=== PATIENT | male | born 1995 | race Two or more races ===

== ENCOUNTER 2022-05-12 20:48 | Emergency (ER) | payer MEDICAID ==
[~2022-05-12] VITALS: Ht 167.6 cm; Wt 83.9 kg
[2022-05-12 20:55] VITALS: BP 130/83
--- NOTE | 2022-05-12 21:17 | NUR ---
Called [phone] - Recommendation- EKG, CBC, CMP, Tylenol, Alcohol, Aspirin, and observation 6 hours and repeat EKG, If patient drawsiness, give Activate Charcoal. Placed patient on microphone operator.
[2022-05-12 21:39] LABS: BASOPHILS % (AUTO) 0.7 % (0.0-2.0); EOSINOPHILS # (AUTO) 0.2 K/uL (0-0.4); EOSINOPHILS % (AUTO) 3.1 % (0.0-4.0); HEMATOCRIT 47.8 % (36-52); LYMPHOCYTES # (AUTO) 1.6 K/uL (2.0-11.5); LYMPHOCYTES % (AUTO) 23.2 % (20.5-51.1); MEAN CORPUSCULAR HEMOGLOBIN 30 pg (27-31); MEAN CORPUSCULAR HGB CONC 34 g/dL (33-37); MEAN CORPUSCULAR VOLUME 88.1 fL (80-94); MONOCYTES # (AUTO) 0.7 K/uL (0.8-1.0); MONOCYTES % (AUTO) 9.8 % (1.7-9.3); NEUTROPHILS # (AUTO) 4.4 K/uL (1.8-7.7); NEUTROPHILS % (AUTO) 63.2 % (42.2-75.2); PLATELET COUNT (AUTO) 312 K/uL (140-450); RED BLOOD CELL COUNT(AUTO) 5.43 MIL/uL (4.20-6.10); RED CELL DISTRIBUTION WIDTH 13.7 % (11.6-13.7); WHITE BLOOD COUNT (AUTO) 6.9 K/uL (4.8-10.8)
[2022-05-12 22:00] LABS: ALBUMIN 4.6 g/dL (3.4-5.0); ANION GAP 13.5 (8-16); ASPARTATE AMINOTRANSFERASE 16 U/L (15-37); CARBON DIOXIDE 25.6 mmol/L (21-32); CHLORIDE 102 mmol/L (98-107); CREATININE 0.9 mg/dL (0.6-1.3); GFR ARICAN-AMERICAN 131 mL/min (>90); GLUCOSE 91 mg/dL (74-106); POTASSIUM 4.1 mmol/L (3.5-5.1); SODIUM SERUM 137 mmol/L (136-145); TOTAL BILIRUBIN 0.5 mg/dL (0.0-1.0); UREA NITROGEN, BLOOD 10 mg/dL (7-18)
--- NOTE | 2022-05-12 22:00 | NUR ---
pt taken to bed 06
[2022-05-12 22:02] LABS: SALICYLATE < 2.8 mg/dL (2.8-20.0)
[2022-05-12 22:03] LABS: ACETAMINOPHEN < 0.5 ug/ml (10-30)
[2022-05-12 22:13] LABS: BARBITURATE, URINE NEGATIVE ng/ml (NEG <=200); BENZODIAZEPINE, URINE NEGATIVE ng/mL (NEG <=200); CANNABINOID, URINE NEGATIVE ng/mL (NEG <=50); COCAINE, URINE NEGATIVE ng/mL (NEG <=300); OPIATE, URINE NEGATIVE ng/mL (NEG <=2000); PHENCYCLIDINE SCREEN,URINE NEGATIVE ng/mL (NEG <=25)
--- NOTE | 2022-05-12 22:28 | NUR ---
called pt friend to notify he was here
--- NOTE | 2022-05-13 01:00 | NUR ---
27 Y/O M BIBA FOR SI. PT WAS AT HOME DEPRESSED AND OVERSDOSED: TOOK 4 ZOLOFTS, 4 ALPRALOZAM, 4 LORAZAPRAM, 4 LAMATOGRINE . PT CALLED 911 STATED HE HAD SI. PT HAS A HX OF DEPRESSSION AND TAKES ABOVE MEDS. PT STATES HE WANTS TO END HIS LIFE. PT STATES HES DEPRESSED , HAS NO JOB AND WANTS TO END LIFE. AT THIS TIME PT STATES HE IS DEPRESSED AND HAS THOUGHTS BUT NO PLAN. PT HAS NO PREVIOUS MEDICAL HISTORY OTHER THAN DEPRESSION, 5150 WROTE FOR DANGER TO SELF ON 05/12/22 AT 2026
--- NOTE | 2022-05-13 02:15 | NUR ---
PT ASKED FOR RAJWINDER. GIVEN MEAL AND DRINK
--- NOTE | 2022-05-13 02:20 | NUR ---
Karol koch in EDM - 05/13/22 at 0230 by [email or web address] 27 Y/O Marquez PACHECO FOR SI. PT WAS AT HOME DEPRESSED AND TOOK 4 ZOLOFTS, 4 ALPRALOZAM, 4 LORAZAPRAM, 4 LAMATOGRINE
--- NOTE | 2022-05-13 03:51 | NUR ---
PT UP WAITING FOR TELEPYSCH
--- NOTE | 2022-05-13 05:20 | NUR ---
PT PACKAGING SPECIALIST WITH [facility]
--- NOTE | 2022-05-13 05:45 | NUR ---
[facility] SUGGESTED TO END 5150 HOLD. TO WRITE DOWN RESOURCES FOR PT TO GET A THERAPIST. TO WRITE NEW RX FOR PT. STATES THAT PT IS NO LONGER HARM TO SELF AND WANT TO RECIEVE HELP.
--- NOTE | 2022-05-13 05:55 | NUR ---
LEFT AT [facility] FOR DR TO CALL BACK
[2022-05-13 06:40] VITALS: BP 121/70
--- NOTE | 2022-05-13 06:40 | NUR ---
Patient discharged with v/s stable. Written and verbal after care instructions given and explained. Patient verbalized understanding. Ambulatory with steady gait. All questions addressed prior to discharge. Advised to follow up with [facility] DR WROTE AND SENT RX TO PHARMACY
--- NOTE | 2022-05-13 08:34 | NUR ---
RECEIVED CALL FROM RAJEEV FROM [facility]. REPORTED LAB VALUES AND INFORMED HER THAT PT WAS DISCHARGED. CASE CLOSED ON THEIR END.
== END 2022-05-13 06:40 | disposition home or self-care (01) ==
LOC: MED 20:48
DX: T43.222A Poisoning by selective serotonin reuptake inhibitors, intentional self-harm, initial encounter (principal); Z20.822 Contact with and (suspected) exposure to COVID-19; T42.4X2A Poisoning by benzodiazepines, intentional self-harm, initial encounter; T42.6X2A Poisoning by other antiepileptic and sedative-hypnotic drugs, intentional self-harm, initial encounter; Y92.89 Other specified places as the place of occurrence of the external cause
CPT/HCPCS: 36415; 80053; 80299; 80305; 85025; 87426; 87635; 93005; 99285; C9803; G0480; G0482; Q0163